=== PATIENT | female | born 1925 | race Two or more races ===

== ENCOUNTER 2016-11-17 15:15 | Outpatient (CLI) ==
[2013-06-28 17:13] VITALS: BMI 25.6
[2016-11-17 15:43] LABS: BILIRUBIN,URINE Negative (NEGATIVE); KETONES,URINE Negative (NEGATIVE); LEUKOCYTE ESTERASE ,URINE 1+ (NEGATIVE); NITRITE,URINE Negative (NEGATIVE); PROTEIN,URINE Negative (NEGATIVE); URINE, BLOOD Negative (NEGATIVE)
[2016-11-17 15:48] LABS: ADD URINE MICROSCOPIC YES
== END 2016-11-17 15:16 | disposition home or self-care (01) ==
LOC: NONPT 15:15
PROVIDERS: ATTEND Internal Medicine
DX: R30.0 Dysuria (principal)
CPT/HCPCS: 81001; 87086